=== PATIENT | female | born 1990 | race Caucasian/White ===

== ENCOUNTER 2016-11-30 07:59 | Inpatient (IN) | payer OTHER ==
[2016-11-30 09:20] VITALS: BMI 34.0
[2016-11-30] MEDS ORDERED: CITRIC ACID-SODIUM CITRATE 15 ML CUP PO ONE (10:24)
[2016-11-30] MEDS ORDERED: ceFAZolin 2 GM in SODIUM CHLORIDE 0.9% 100 ML IVPB ONE (10:39)
[2016-11-30 11:04] LABS: Basophils % (A) 0 %; CH 30.2; CHCM 35.7; Eosinophils # (A) 0.1 k/uL (0-0.7); Eosinophils % (A) 1 %; HCT 40.8 % (34.0-46.0); HDW 2.96; Luc # (Auto) 0.24; Luc % (Auto) 2; Lymphocytes # (A) 1.9 k/uL (1.0-4.8); Lymphocytes % (A) 15 %; MCH 29.1 pg (25.0-35.0); MCHC 34.3 g/dL (31.0-37.0); Mean Platelet Volume 6.8; Monocytes # (A) 0.6 k/uL (0-1.0); Monocytes % (A) 5 %; Neutrophils % (A) 77 %; RDW 12.5 % (11.5-15.5); WBC 12.9 k/uL (3.8-10.6); WBC (Perox) 13.05
[2016-11-30] MEDS: LACTATED RINGERS 1,000 ML IV SCH ×2 (11:13→14:33)
[2016-11-30] MEDS ORDERED: KETOROLAC 30 MG/ML 1 ML VIAL ONE (16:48)
[2016-11-30] MEDS ORDERED: OXYTOCIN 10 UNIT/ML 1 ML VIAL IM ONE (16:48)
[2016-11-30] MEDS ORDERED: NALBUPHINE 10 MG/ML AMPUL ONE (16:48)
[2016-11-30] MEDS ORDERED: ePHEDrine 50 MG/ML 1 ML AMP ONE (16:48)
[2016-11-30] MEDS ORDERED: MORPHINE SULFATE (PF) 0.3 MG/0.3 ML SYR ONE (16:48)
[2016-11-30] MEDS ORDERED: ONDANSETRON 4 MG/2 ML VIAL ONE (16:48)
[2016-11-30] MEDS ORDERED: LACTATED RINGERS 1,000 ML BAG IV ONE (16:48)
[2016-11-30] MEDS ORDERED: NALOXONE 0.4 MG/ML 1 ML VIAL IV PRN ×2 (17:41→18:38)
[2016-11-30] MEDS ORDERED: diphenhydrAMINE 50 MG CAP PO PRN (17:41)
[2016-11-30] MEDS ORDERED: METOCLOPRAMIDE 5 MG/ML 2 ML VIAL IVP PRN (17:41)
[2016-11-30] MEDS ORDERED: ACETAMINOPHEN TAB 325 MG TAB PO PRN (17:41)
[2016-11-30] MEDS ORDERED: SIMETHICONE 80 MG CHEWABLE PO PRN (17:41)
[2016-11-30] MEDS ORDERED: ONDANSETRON 4 MG/2 ML VIAL IVP PRN (17:41)
[2016-11-30] MEDS ORDERED: KETOROLAC 30 MG/ML 1 ML VIAL IVP PRN (17:41)
[2016-11-30] MEDS ORDERED: diphenhydrAMINE 25 MG CAP PO PRN (17:41)
[2016-11-30] MEDS ORDERED: ZOLPIDEM 5 MG TAB PO PRN (17:41)
[2016-11-30] MEDS ORDERED: diphenhydrAMINE 50 MG/ML 1 ML VIAL IVP PRN ×2 (17:41)
--- NOTE | 2016-11-30 17:45 | P.HPOB ---
History of Present Illness H&P Date: 11/30/16 Chief Complaint: Intrauterine at 36 weeks with oligohydramnios Jessica is a 18-year-old at 36 weeks gestation who arrives from ultrasound department where oligohydramnios was diagnosed. She was scheduled for a an ultrasound for size and on ultrasound was noted to have an VINNY of 3. She was immediately brought to labor and delivery and estimated is in breech presentation plan will be to do a primary section later today. heart tones are in the 140s to 150s and have been reactive. Pertinent labs include B+ blood type Rh antibody was negative rubella was immune hepatitis B surface antigen and RPR were negative. She is noted have a positive group B strep so close monitoring of the baby will be done as it is unclear if she is previously ruptured. course was generally unremarkable but she is a transfer of care to [place] at approximately 35 weeks gestation. On physical exam her heart is regular, lungs clear, extremities without pain. Vital signs are stable and she is afebrile. Gravid uterus is noted however she is measuring small for dates at this time. Assessment intrauterine at 36 weeks with oligohydramnios. Plan primary low transverse section Past Medical History Past Medical History: No Reported History History of Any Multi-Drug Resistant Organisms: None Reported Past Surgical History: No Surgical Hx Reported Past Anesthesia/Blood Transfusion Reactions: No Reported Reaction Smoking Status: Never smoker Past Alcohol Use History: Rare Past Drug Use History: None Reported Medications and Allergies Home Medications Medication Instructions Recorded Confirmed Type Vit #113/Iron/Folate PO 11/30/16 History [ Chewable Tab] Allergies Allergy/AdvReac Type Severity Reaction Status Date / Time shellfish derived AdvReac Anaphylaxis Verified 11/30/16 08:41 Exam Osteopathic Statement: *. No significant issues noted on an osteopathic structural exam other than those noted in the History and Physical/Consult. - Vital Signs Vital signs: Vital Signs Temp Pulse Resp BP 11/30/16 17:38 96.9 F L 90 16 134/63 11/30/16 08:39 97.1 F L 100 18 135/83 Intake and Output 11/30/16 11/30/16 11/30/16 06:59 14:59 22:59 Intake Total 1000 Balance 1000 Intake: Intake, IV Titration 1000 Amount Lactated Ringers 1,000 ml 1000 @ 125 mls/hr IV .Q8H [facility] Rx#:[id number] Other: Weight 95.708 kg Patient Weight 12/01/16 06:59 Weight 95.708 kg - OBG Physical Exam Abdomen: bowel sounds normal, no diffuse tenderness, no bruit present, no guarding noted, no hepatomegaly, no splenomegaly, no mass Results Result Diagrams: 11/30/16 10:55 Abnormal Lab Results - Last 24 Hours (Table) 11/30/16 Range/Units 10:55 WBC 12.9 H (3.8-10.6) k/uL Neutrophils # 10.0 H (1.3-7.7) k/uL
--- NOTE | 2016-11-30 17:49 | P.OP ---
Date of Procedure: 11/30/16 Preoperative Diagnosis: Intrauterine at 36 weeks: Breech presentation: Oligohydramnios Postoperative Diagnosis: Same Procedure(s) Performed: Primary low transverse section Anesthesia: spinal Surgeon: Micky Quesada Hot Dipper #1: Jim Johnson Estimated Blood Loss (ml): 600 IV fluids (ml): 800 Urine output (ml): 250 Pathology: other (Placenta) Condition: stable Disposition: floor Operative Findings: scores of 8 and 9 at one and 5 minutes respectively and weight was 5 lbs. 15 oz. Viable baby boy is delivered. Description of Procedure: Patient is taken to the operating suite where a spinal anesthetic was found to be adequate. She was prepped and draped in the normal sterile fashion and a Clement cath was placed. She was placed in dorsal supine position with leftward tilt. Initially a Pfannenstiel skin incision was made and this incision was then carried through to underlying layer of the fascia was second knife. Fascia was then nicked in the midline and this opening was extended laterally with Cruz scissors. Superior and inferior aspect of this incision were then grasped tented up and bluntly and sharply dissected off the rectus muscles. Rectus muscles were then divided midline and blunt dissection through the peritoneum was made. This opening was then extended superiorly and inferiorly with good visualization of both bowel bladder. Bladder blade was then placed and the vesicouterine peritoneum was identified and elevated. It was entered sharply with Metzenbaum scissors and this opening was extended across face of the uterus so that blunt dissection of the bladder out of the operative field could be done. Knife was then used to incise uterus this opening was then nicked completed with hemostat and then bluntly extended. Baby's buttocks was then delivered followed by the legs once we got the body delivered with gentle downward traction right and left shoulders were easily swept and the head was delivered without difficulty. Mouth and nares were then bulb suctioned and the umbilical cord was clamped cut usual fashion with nursery personnel being present. Once this was accomplished placenta was delivered intact and Pitocin was added to the IV. Uterus was then exteriorized cleared of clots debris and closed in 2 layers with 0 Vicryl suture. Once excellent hemostasis was obtained 3-0 Vicryl was used to reapproximate the bladder flap. Blood and debris was then suctioned from the posterior cul-de-sac. Uterus was then reinserted into the abdomen peritoneal layer was then closed [place] suture fascial layer was closed with 0 Vicryl suture one layer of 3-0 Vicryl was placed in deep subcuticular tissues reapproximate the skin and close space and the skin was then closed with sarah. It should be noted that Dr. Johnson did the remaining closure following the first layer of the uterine closure as I called out to a delivery.
[2016-11-30] MEDS ORDERED: NALBUPHINE 10 MG/ML AMPUL IV PRN (18:38)
[2016-11-30] MEDS ORDERED: MORPHINE SULFATE 4 MG/ML SYRINGE IVP PRN (18:38)
[2016-11-30] MEDS: SENNOSIDES-DOCUSATE SODIUM 1 EACH TAB PO SCH (22:34)
[2016-12-01] MEDS: ceFAZolin 2 GM in SODIUM CHLORIDE 0.9% 100 ML IVPB SCH ×2 (02:00→10:06)
[2016-12-01] MEDS: LACTATED RINGERS 1,000 ML IV SCH ×3 (04:55→21:05)
[2016-12-01 06:10] LABS: Basophils % (A) 0 %; Eosinophils % (A) 0 %; HCT 34.7 % (34.0-46.0); HDW 2.88; HGB 11.9 gm/dL (11.4-16.0); Luc # (Auto) 0.18; Luc % (Auto) 2; Lymphocytes # (A) 1.4 k/uL (1.0-4.8); Lymphocytes % (A) 12 %; MCH 29.5 pg (25.0-35.0); MCHC 34.4 g/dL (31.0-37.0); MCV 85.9 fL (80.0-100.0); Mean Platelet Volume 6.7; Monocytes # (A) 0.7 k/uL (0-1.0); Monocytes % (A) 6 %; Neutrophils % (A) 79 %; RBC 4.04 m/uL (3.80-5.40); RDW 12.7 % (11.5-15.5); WBC 11.4 k/uL (3.8-10.6); WBC (Perox) 12.28
[2016-12-01] MEDS: SENNOSIDES-DOCUSATE SODIUM 1 EACH TAB PO SCH ×2 (08:39→21:05)
--- NOTE | 2016-12-01 12:48 | P.PNOBGPC ---
Subjective - Subjective Principal diagnosis: Postop day 1 Interval history: Jessica is doing very well postop day 1. She is involuting, voiding, and she is tolerating a diet. She voices no complaints this time. Patient reports: Reports appetite normal, Reports voiding normally, Reports pain well controlled, Reports ambulating normally : doing well Objective - Vital Signs Latest vital signs: Vital Signs Temp Pulse Resp BP Pulse Ox 12/01/16 11:00 98.3 F 74 16 121/61 12/01/16 07:00 98.8 F 74 16 113/64 12/01/16 05:00 98.3 F 84 16 130/62 98 12/01/16 03:00 98 12/01/16 01:00 98.5 F 79 16 120/62 98 11/30/16 23:00 98 11/30/16 21:38 98.1 F 88 16 136/62 98 11/30/16 19:38 98.1 F 91 16 145/67 99 11/30/16 19:08 87 16 144/66 11/30/16 18:38 94 16 152/67 99 11/30/16 18:23 97.4 F L 16 152/78 11/30/16 18:08 93 16 144/74 11/30/16 17:53 16 140/66 11/30/16 17:38 96.9 F L 90 16 134/63 Intake and Output 11/30/16 12/01/16 12/01/16 22:59 06:59 14:59 Output Total 1200 500 900 Balance -1200 -500 -900 Output: Urine 600 500 900 Uretheral (Clement) 500 Estimated Blood Loss 600 Other: # Voids 0 1 - Exam Lungs: bilateral: normal Chest: Normal S1, Normal S2 Extremities: Present: normal Abdomen: Present: normal appearance, soft. Absent: distention, tenderness Incision: Present: normal, dry, intact Uterus: Present: normal, firm - Labs Labs: Abnormal Lab Results - Last 24 Hours (Table) 12/01/16 Range/Units 05:33 WBC 11.4 H (3.8-10.6) k/uL Neutrophils # 9.0 H (1.3-7.7) k/uL
--- NOTE | 2016-12-01 18:23 | P.PN ---
Progress Note - Text Date:11/30 Time:1825 Patient is status post . Patient seen this morning with VAS score of 2. c/o mild pruritus, c/o nausea/vomiting, comfortable and doing well.
[2016-12-01] MEDS: IBUPROFEN 600 MG TAB PO PRN (20:53)
[2016-12-02] MEDS: Acetaminophen-Codeine 300-30mg TAB PO PRN ×4 (00:15→20:37)
[2016-12-02] MEDS: IBUPROFEN 600 MG TAB PO PRN ×2 (03:33→12:47)
[2016-12-02] MEDS: LACTATED RINGERS 1,000 ML IV SCH (03:34)
[2016-12-02 07:42] VITALS: RESP 16
[2016-12-02] MEDS: SENNOSIDES-DOCUSATE SODIUM 1 EACH TAB PO SCH ×2 (07:44→20:38)
--- NOTE | 2016-12-02 10:37 | P.PNOBGPC ---
Subjective - Subjective Principal diagnosis: Postop day 2 Interval history: Jessica is doing very well postop day 2. She is ambulating, voiding, and she is tolerating her diet. She voices no complaints. She like to go home tomorrow. Her vital signs are otherwise stable. Heart regular, lungs clear, extremities without pain. Abdomen is soft bowel sounds are noted. Incision is clean dry and intact. Assessment postop day 2. Plan continue current care. Objective - Vital Signs Latest vital signs: Vital Signs Temp Pulse Resp BP 12/02/16 07:41 98.3 F 72 16 116/56 12/02/16 00:00 98 F 89 15 126/72 12/01/16 16:10 98.4 F 77 16 119/72 12/01/16 11:00 98.3 F 74 16 121/61
[2016-12-03 08:45] VITALS: BP 133/71; PULSE 78; TEMP 99
[2016-12-03] MEDS: SENNOSIDES-DOCUSATE SODIUM 1 EACH TAB PO SCH (11:15)
--- NOTE | 2016-12-03 12:50 | P.DS ---
Providers Date of admission: 11/30/16 08:16 Expected date of discharge: 12/03/16 Attending physician: Micky Quesada [facility] Course: Jessica is doing very well postop day 3. She was involuting, voiding and she did tolerate her diet. She voices no complains. Vital signs are stable and afebrile. Heart regular, lungs clear, extremities without pain. Dolly removed prior discharge and occasional for pain were provided. All questions were answered for her prior to her discharge. Heart was regular, lungs were clear, extremities without pain. Abdomen soft uterus is firm and her incision was clean dry and intact. Assessment postop day 3. Plan discharged home follow up with me 1 week. Patient Condition at Discharge: Good Plan - Discharge Summary New Discharge Prescriptions: Acetaminophen-Codeine 300-30mg [Tylenol #3] 1 tab PO Q4H PRN #30 tablet PRN Reason: Pain Ibuprofen [Motrin] 600 mg PO Q6HR PRN #30 tab PRN Reason: Pain Discharge Medication List Vit #113/Iron/Folate [ Chewable Tab] PO 11/30/16 [ History] Acetaminophen-Codeine 300-30mg [Tylenol #3] 1 tab PO Q4H PRN #30 tablet [Rx] Ibuprofen [Motrin] 600 mg PO Q6HR PRN #30 tab 12/02/16 [Rx] Follow up Appointment(s)/Referral(s): Micky Quesada DO [Doctor of Osteopathic Medicine] - 2 Weeks Activity/Diet/Wound Care/Special Instructions: No heavy lifting, limit stairs and driving and pelvic rest. If any high temperatures, heavy bleeding, or severe pain call my office Discharge Disposition: HOME SELF-CARE
== END 2016-12-03 12:49 | disposition home or self-care (01) | DRG 765 ==
LOC: FBPOP 07:59 → 4FBP 08:16
PROVIDERS: ADMIT Obstetrics & Gynecology; ATTEND Obstetrics & Gynecology
PROC: 10D00Z1 Extraction of Products of Conception, Low, Open Approach (ICD-10-PCS; principal; 2016-11-30 17:22)
DX: O32.1XX0 Maternal care for breech presentation, not applicable or unspecified (principal); O41.03X0 Oligohydramnios, third trimester, not applicable or unspecified; O36.5930 Maternal care for other known or suspected poor fetal growth, third trimester, not applicable or unspecified; Z37.0 Single live birth; Z3A.36 36 weeks gestation of pregnancy; L29.9 Pruritus, unspecified
CPT/HCPCS: 76805; 76817; 85025; 86850; 86900; 86901; 88307

== ENCOUNTER → 2016-11-30 | Outpatient (CLI) | payer OTHER ==
[~2016-11-30] MED LIST: CITRIC ACID-SODIUM CITRATE 15 ML CUP PO ONE; ceFAZolin 2 GM in SODIUM CHLORIDE 0.9% 100 ML IVPB ONE
--- NOTE | 2016-11-30 08:44 | US ---
EXAMINATION TYPE: US OB >= 14 wk fetus DATE OF EXAM: 11/30/2016 8:29 AM COMPARISON: None CLINICAL HISTORY: O36.63X0 LARGE FOR DATES TECHNIQUE: Transabdominal (TA) and Transvaginal (TV) GESTATIONAL AGE / DATING Physician Established: (36 weeks/2 days) EDC: 12/26/16 Dates by LMP: unknown Dates by First Scan: not available Dates by Current Scan: (35 weeks/ days) EDC: 12/29/16 SURVEY IUP: Single PLACENTA: Anterior PREVIA: No Previa VINNY: 3 cm taken twice, Dr. Quesada called and patient sent upstairs CERVICAL LENGTH (transabdominal: norm > 3.0cm):2.2 cm CERVICAL LENGTH (transvaginal: norm> 2.5cm): 2.8 cm (Supplemental transvaginal imaging performed to verify cervical length.) BIOMETRY PRESENTATION: Breech BPD: 8.6 cm 34 weeks / 5 days HC: 33.1 cm 37 weeks / 5 days AC: 31.5 cm 35 weeks / 4 days FL: 6.8 cm 35 weeks / 0 days ESTIMATED WEIGHT IN GRAMS: 2683 grams ESTIMATED WEIGHT IN LBS/OZS: 5 lbs.15 oz. WEIGHT PERCENTAGE BASED ON ESTABLISHED DATES: 30% HC/AC: 1.0 FL/AC: 22 HEART RATE: 133 bpm RHYTHM: Normal IMPRESSION: RUFF FETUS PRESENT IN A BREECH PRESENTATION WITH A GESTATIONAL AGE OF 35 WEEKS +/- 3 WEEKS. ESTIMATED DATE OF CONFINEMENT BASED ON THIS EXAMINATION IS . MARIA ISABELD
== END | disposition home or self-care (01) ==
LOC: RADUSWWP 06:47
PROVIDERS: ATTEND Obstetrics & Gynecology
DX: O36.63X0 Maternal care for excessive fetal growth, third trimester, not applicable or unspecified (principal); O32.1XX0 Maternal care for breech presentation, not applicable or unspecified; Z3A.35 35 weeks gestation of pregnancy
CPT/HCPCS: 76805; 76817

== ENCOUNTER 2018-08-30 05:55 | Inpatient (IN) | payer BC, OTHER ==
--- NOTE | 2018-08-29 17:16 | P.HPOB ---
History of Present Illness H&P Date: 08/29/18 Chief Complaint: Intrauterine at term: Previous section Jessica is a 27-year-old G3 to P1 prior section who requests same. Precis course has been unremarkable and she is feeling well at this time. With her last there was a history of oligohydramnios but during this we have followed this value closely and she is had no signs of oligohydramnios. On physical exam vital signs are stable and afebrile. Heart regular, lungs clear, extremities without pain. Abdomen soft gravid uterus is noted. All questions are answered for her prior to proceeding to the operative room. Past Medical History Past Medical History: No Reported History History of Any Multi-Drug Resistant Organisms: None Reported Past Surgical History: Section Past Anesthesia/Blood Transfusion Reactions: No Reported Reaction Smoking Status: Never smoker Medications and Allergies Home Medications Medication Instructions Recorded Confirmed Type Vit 113/Iron/Lmfolate 1 tab PO DAILY 11/30/16 08/28/18 History [ Chewable Tab] Allergies Allergy/AdvReac Type Severity Reaction Status Date / Time Iodinated Contrast- Oral and Allergy Dyspnea Verified 08/28/18 16:14 IV Dye shellfish derived Allergy Dyspnea Verified 08/28/18 16:14 Exam Osteopathic Statement: *. No significant issues noted on an osteopathic structural exam other than those noted in the History and Physical/Consult.
[2018-08-30] MEDS ORDERED: CITRIC ACID-SODIUM CITRATE 15 ML CUP PO ONE (06:31)
[2018-08-30] MEDS ORDERED: LIDOCAINE 1% 20 ML VIAL (10MG/ML) FOR IV START INTRADERMA PRN (06:31)
[2018-08-30] MEDS ORDERED: ceFAZolin IN SWFI 2 GM/20 ML SYRINGE IVP ONE (06:31)
[2018-08-30] MEDS ORDERED: ONDANSETRON 4 MG/2 ML VIAL IVP PRN ×2 (06:47→08:38)
[2018-08-30] MEDS ORDERED: NALBUPHINE 10 MG/ML VIAL (10ML MDV) IV PRN (06:47)
[2018-08-30] MEDS ORDERED: diphenhydrAMINE 50 MG/ML 1 ML VIAL IVP PRN ×3 (06:47→08:38)
[2018-08-30] MEDS ORDERED: NALOXONE 0.4 MG/ML 1 ML VIAL IV PRN ×2 (06:47→08:38)
[2018-08-30] MEDS ORDERED: HYDROmorphone 0.5 MG/0.5 ML SYRINGE IVP PRN (06:47)
[2018-08-30 07:00] LABS: Basophils % (A) 0 %; Eosinophils # (A) 0.2 k/uL (0-0.7); Eosinophils % (A) 2 %; HCT 40.3 % (34.0-46.0); HGB 13.5 gm/dL (11.4-16.0); Lymphocytes # (A) 1.8 k/uL (1.0-4.8); Lymphocytes % (A) 19 %; MCH 28.5 pg (25.0-35.0); MCHC 33.5 g/dL (31.0-37.0); MCV 85.1 fL (80.0-100.0); Mean Platelet Volume 7.2; Monocytes # (A) 0.4 k/uL (0-1.0); Monocytes % (A) 4 %; Neutrophils # (A) 6.9 k/uL (1.3-7.7); Neutrophils % (A) 73 %; Platelet Count 232 k/uL (150-450); RBC 4.73 m/uL (3.80-5.40); RDW 13.3 % (11.5-15.5); WBC 9.6 k/uL (3.8-10.6)
[2018-08-30] MEDS: LACTATED RINGERS 1,000 ML IV SCH ×3 (07:09→13:29)
[2018-08-30 07:26] VITALS: BMI 36.3
[2018-08-30] MEDS ORDERED: KETOROLAC 30 MG/ML 1 ML VIAL ONE (07:58)
[2018-08-30] MEDS ORDERED: MORPHINE SULFATE (PF) 0.3 MG/0.3 ML SYR ONE (07:58)
[2018-08-30] MEDS ORDERED: ONDANSETRON 4 MG/2 ML VIAL ONE (07:58)
[2018-08-30] MEDS ORDERED: NALBUPHINE 10 MG/ML VIAL (10ML MDV) ONE (07:58)
[2018-08-30] MEDS ORDERED: OXYTOCIN 10 UNIT/ML 1 ML VIAL ONE (07:58)
[2018-08-30] MEDS ORDERED: METOCLOPRAMIDE 5 MG/ML 2 ML VIAL IVP PRN (08:38)
[2018-08-30] MEDS ORDERED: diphenhydrAMINE 25 MG CAP PO PRN (08:38)
[2018-08-30] MEDS ORDERED: ZOLPIDEM 5 MG TAB PO PRN (08:38)
[2018-08-30] MEDS ORDERED: HYDROcodone/APAP 7.5-325MG 1 EACH TAB PO PRN (08:38)
[2018-08-30] MEDS ORDERED: SIMETHICONE 80 MG CHEWABLE PO PRN (08:38)
[2018-08-30] MEDS ORDERED: diphenhydrAMINE 50 MG CAP PO PRN (08:38)
--- NOTE | 2018-08-30 08:42 | P.OP ---
Date of Procedure: 08/30/18 Preoperative Diagnosis: See at term: Previous section Postoperative Diagnosis: Same Procedure(s) Performed: Repeat low transverse section Anesthesia: spinal Surgeon: Micky Quesada Rerecording Mixer #1: Nancy Soriano Estimated Blood Loss (ml): 600 IV fluids (ml): 1,000 Urine output (ml): 100 Pathology: none sent Condition: stable Disposition: floor Operative Findings: Male scores of 9 and 9 at one and 5 minutes with a weight of 8 lbs. 5 oz. Description of Procedure: Patient was taken to the operating suite where a spinal anesthetic was found to be adequate. She was prepped and draped in the normal sterile fashion and placed in the dorsal supine position with leftward tilt. Initially a Pfannenstiel skin incision was made and this incision was then carried through to underlying layer of the fashion with the second knife. Fascia was then nicked in the midline and this opening was extended laterally with Cruz scissors superior and inferior aspect of this incision was then grasped tented up and bluntly and sharply dissected off the rectus muscles. Rectus muscles were then divided in the midline and blunt dissection through the peritoneum was made. This opening was then extended superiorly and inferiorly with good visualization of both bowel bladder. Bladder blade was then placed and the bladder flap identified. It was entered with Metzenbaum scissors and this opening was extended across face the uterus with Metzenbaum scissors. Knife was then used to incise the uterus following blunt dissection of the bladder out of the operative field. This opening was fully developed with a hemostat and then the incision was bluntly dissected. Head was then H medically delivered mouth nares bulb suctioned remainder the baby was delivered with gentle traction and nursery personnel was present to assume care. Umbilical cord was then clamped cut usual fashion. Placenta was then delivered intact and Pitocin was added to the IV. Uterus was then exteriorized cleared of clots and debris and closed in 1 layer with 0 Vicryl suture. Once hemostasis was obtained, blood and debris was suctioned from the posterior cul- de-sac and uterus was reinserted the abdomen. Peritoneal layer was then closed with 0 Vicryl suture. Fascial layer was closed with 0 Vicryl suture. One layer of 3-0 Vicryl was placed in the deep subcuticular tissues to reapproximate skin and close space. Skin was then closed with 3-0 Vicryl. Sponge, lap, needle counts were all correct 2. Patient was then taken to the recovery room in stable and satisfactory condition.
[2018-08-30] MEDS: KETOROLAC 30 MG/ML 1 ML VIAL IVP PRN (16:38)
[2018-08-31] MEDS: LACTATED RINGERS 1,000 ML IV SCH ×3 (00:57→10:09)
[2018-08-31] MEDS: SENNOSIDES-DOCUSATE SODIUM 1 EACH TAB PO SCH ×3 (00:57→19:23)
[2018-08-31] MEDS: KETOROLAC 30 MG/ML 1 ML VIAL IVP PRN ×2 (02:19→08:40)
[2018-08-31 07:21] LABS: Basophils % (A) 0 %; Eosinophils # (A) 0.1 k/uL (0-0.7); Eosinophils % (A) 1 %; HCT 32.5 % (34.0-46.0); HGB 10.9 gm/dL (11.4-16.0); Lymphocytes # (A) 1.7 k/uL (1.0-4.8); Lymphocytes % (A) 18 %; MCH 28.6 pg (25.0-35.0); MCHC 33.5 g/dL (31.0-37.0); MCV 85.6 fL (80.0-100.0); Mean Platelet Volume 6.8; Monocytes # (A) 0.6 k/uL (0-1.0); Monocytes % (A) 6 %; Neutrophils % (A) 72 %; Platelet Count 170 k/uL (150-450); RDW 13.5 % (11.5-15.5); WBC 9.7 k/uL (3.8-10.6)
--- NOTE | 2018-08-31 07:29 | P.PNOBGPC ---
Subjective - Subjective Principal diagnosis: Status post repeat low transverse postoperative day #1 Interval history: Patient seen and examined. She denies nausea, vomiting, chest pain, shortness of breath or calf pain. She is passing flatus and pain is controlled Patient reports: Reports appetite normal, Reports voiding normally, Reports pain well controlled, Reports ambulating normally : doing well Objective - Vital Signs Latest vital signs: Vital Signs Temp Pulse Resp BP Pulse Ox 08/31/18 06:00 16 08/31/18 04:10 98.9 F 72 14 113/76 97 08/31/18 02:00 16 08/31/18 00:00 98.8 F 81 16 110/68 100 08/30/18 22:00 16 08/30/18 20:00 98.1 F 68 16 105/67 100 08/30/18 18:12 16 08/30/18 17:00 16 08/30/18 15:48 98.6 F 75 16 128/62 08/30/18 15:00 98.6 F 75 16 128/62 100 08/30/18 13:00 18 08/30/18 11:47 99 08/30/18 11:00 96.7 F L 76 16 118/64 99 08/30/18 10:30 96.5 F L 67 16 114/65 99 08/30/18 10:00 95.8 F L 57 L 16 108/56 97 08/30/18 09:47 16 97 08/30/18 09:45 95.5 F L 64 16 137/61 97 08/30/18 09:30 95.5 F L 73 16 98 08/30/18 09:15 95.4 F L 69 16 117/56 98 08/30/18 09:00 96.1 F L 75 H 125/61 99 08/30/18 07:47 16 98 Intake and Output 08/30/18 08/31/18 08/31/18 22:59 06:59 14:59 Output Total 1350 Balance -1350 Output: Urine 1350 Uretheral (Clement) 650 Other: # Voids 1 1 - Exam Lungs: bilateral: normal Chest: Normal S1, Normal S2 Extremities: Present: normal Abdomen: Present: normal appearance, soft. Absent: distention, tenderness Incision: Present: normal, dry, intact Uterus: Present: normal, firm - Labs Labs: Abnormal Lab Results - Last 24 Hours (Table) 08/31/18 Range/Units 06:17 Hgb 10.9 L (11.4-16.0) gm/dL Hct 32.5 L (34.0-46.0) % Assessment and Plan (1) Status post repeat low transverse section Current Visit: Yes Status: Acute Code(s): Z98.891 - HISTORY OF UTERINE SCAR FROM PREVIOUS SURGERY SNOMED Code(s): 891475983 Plan: 1. Increase ambulation 2. Regular diet 3. By mouth pain medication
--- NOTE | 2018-08-31 09:38 | P.PN ---
Progress Note - Text Progress Note Date: 08/31/18 27-year-old female status post surgery and section with Duramorph spinal postoperative day #1. Patient doing well, no compressive pruritus, no nausea, no vomiting. VAS is a 3 out of 10 in severity, ambulating well, tolerating diet.
[2018-08-31] MEDS: ACETAMINOPHEN TAB 325 MG TAB PO PRN ×3 (12:01→23:12)
[2018-08-31] MEDS: IBUPROFEN 600 MG TAB PO PRN ×2 (15:22→21:20)
[2018-08-31 18:21] VITALS: RESP 18
[2018-09-01] MEDS: IBUPROFEN 600 MG TAB PO PRN ×2 (03:11→09:59)
[2018-09-01] MEDS: ACETAMINOPHEN TAB 325 MG TAB PO PRN ×2 (06:26→13:17)
--- NOTE | 2018-09-01 10:19 | P.DS ---
Providers Date of admission: 08/30/18 05:55 Expected date of discharge: 09/01/18 Attending physician: Micky Quesada Primary care physician: Stated None Hospital Course: Jessica is doing very well postop day 2. She is ambulating, voiding, and she is tolerating her diet. She voices no complaints. Vital signs are stable and afebrile. Heart regular, lungs clear, extremities without pain. Abdomen soft uterus is firm and lochia is reported to be light. Her incision is otherwise clean dry and intact. Assessment post op day 2. Plan discharged home follow up with me in approximately 2 weeks. Discharge instructions were thoroughly reviewed and a prescription for Motrin was 40 to her pharmacy at her request. Patient Condition at Discharge: Good Plan - Discharge Summary New Discharge Prescriptions: New Ibuprofen [Motrin] 600 mg PO Q6HR PRN #30 tab PRN Reason: Pain No Action Vit 113/Iron/Lmfolate [ Chewable Tab] 1 tab PO DAILY Discharge Medication List Vit 113/Iron/Lmfolate [ Chewable Tab] 1 tab PO DAILY [History] Ibuprofen [Motrin] 600 mg PO Q6HR PRN #30 tab 09/01/18 [Rx] Follow up Appointment(s)/Referral(s): Micky Quesada DO [Doctor of Osteopathic Medicine] - 2 Weeks Activity/Diet/Wound Care/Special Instructions: No heavy lifting, limit stairs and driving, and pelvic rest. If any high temperatures, heavy bleeding, or severe pain call my office Discharge Disposition: HOME SELF-CARE
[2018-09-01 10:46] VITALS: BP 122/72; PULSE 71; TEMP 97.9
== END 2018-09-01 15:30 | disposition home or self-care (01) | DRG 788 ==
LOC: 4FBP 05:55
PROVIDERS: ADMIT Obstetrics & Gynecology; ATTEND Obstetrics & Gynecology
PROC: 10D00Z1 Extraction of Products of Conception, Low, Open Approach (ICD-10-PCS; principal; 2018-08-30 08:00)
DX: O34.211 Maternal care for low transverse scar from previous cesarean delivery (principal); Z3A.39 39 weeks gestation of pregnancy; Z37.0 Single live birth; Z88.8 Allergy status to other drugs, medicaments and biological substances; Z91.013 Allergy to seafood
CPT/HCPCS: 85025; 86850; 86900; 86901